=== PATIENT | female | born 1985 | race Caucasian/White ===

== ENCOUNTER 2019-04-26 20:43 | Emergency (ER) | payer MEDICAID, OTHER ==
--- NOTE | 2019-04-26 21:41 | ED Physician Documentation ---
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 : None HEENT: None Psych: None Musculoskeletal: Other Derm: None Other Past Medical History: sciatica pain - Past Surgical History Past Surgical History: No - Present Medications Home Medications: Ambulatory Orders Medication Instructions Recorded Confirmed Albuterol Sulfate [Proventil Hfa 1 - 2 puffs IH Q4H PRN #1 09/08/15 Inhaler] [email or web address] Amitriptyline [Elavil] 50 04/26/19 Hydrocodone/Acetaminophen 1 - 2 each PO Q6H PRN #14 tablet 04/26/19 [Hydrocodon-Acetaminophen 5-325] Ibuprofen 600 mg PO Q6HR PRN #20 tablet 04/26/19 - Allergies Allergies/Adverse Reactions: Allergies Allergy/AdvReac Type Severity Reaction Status Date / Time Penicillins Allergy Rash Verified 04/26/19 21:02 - Social History Does the pt smoke?: No Smoking Status: Never smoker Does the pt drink ETOH?: Yes Does the pt have substance abuse?: No - Immunizations Immunizations are current?: Yes - POLST Patient has POLST: No PD ED PE NORMAL - Vitals Vital signs reviewed: Yes - General General: Alert and oriented X 3, No acute distress, Well developed/nourished - Derm Derm: Normal color, Warm and dry - Extremities Extremities: No edema - Neuro Neuro: No motor deficit, No sensory deficit PD ED PE EXPANDED - Extremities Extremities: Tenderness (right elbow lateral epicondyle), Limited ROM (limited supination due to pain) Results - Vitals Vitals: Oxygen O2 Source Room air PD MEDICAL DECISION MAKING - ED course Complexity details: considered differential, d/w patient Departure - Departure Disposition: 01 Home, Self Care Clinical Impression: Tendonitis of elbow, right Condition: Good Instructions: ED Epicondylitis Lateral Elbow Follow-Up: Chiquita Higgins PA-C [Primary Care Provider] - Prescriptions: Ibuprofen 600 mg PO Q6HR PRN #20 tablet PRN Reason: Pain Hydrocodone/Acetaminophen [Hydrocodon-Acetaminophen 5-325] 1 - 2 each PO Q6H PRN #14 tablet PRN Reason: pain Forms: Activity restrictions Discharge Date/Time: 04/26/19 22:25
[2019-04-26] MEDS ORDERED: KETOROLAC 60 MG/2 ML VIAL IM STA (21:58)
[2019-04-26 22:14] VITALS: BP 123/68
== END 2019-04-26 22:25 | disposition home or self-care (01) ==
LOC: ED 20:43
DX: M77.8 Other enthesopathies, not elsewhere classified (principal)
CPT/HCPCS: 99283

== ENCOUNTER 2019-09-29 09:29 | Outpatient (CLI) | payer MEDICAID ==
[2019-09-29 09:53] LABS: BASOPHILS # (AUTO) 0.1 10^3/uL (0.0-0.1); BASOPHILS % (AUTO) 0.5 %; EOSINOPHILS # (AUTO) 0.8 10^3/uL (0.0-0.7); EOSINOPHILS % (AUTO) 6.8 %; HGB - HEMOGLOBIN 12.8 g/dL (12.0-16.0); LYMPHOCYTES # (AUTO) 3.2 10^3/uL (1.5-3.5); LYMPHOCYTES % (AUTO) 27.3 %; MEAN CORPUSCULAR HGB CONC 33.2 g/dL (32.0-36.0); MEAN CORPUSCULAR VOLUME 90.4 fL (81.0-99.0); MEAN PLATELET VOLUME 9.9 fL (7.9-10.8); MONOCYTES # (AUTO) 0.6 10^3/uL (0.0-1.0); MONOCYTES % (AUTO) 5.3 %; NEUTROPHILS % (AUTO) 59.7 %; PLT - PLATELET COUNT 369 10^3/uL (130-450); RED BLOOD COUNT 4.27 10^6/uL (4.20-5.40); RED CELL DISTRIBUTION WIDTH 12.1 % (12.0-15.0); WHITE BLOOD COUNT 11.7 x10^3/uL (4.8-10.8)
[2019-09-29 10:19] LABS: CREATININE 0.5 mg/dL (0.4-1.0)
== END 2019-09-29 09:30 | disposition home or self-care (01) ==
LOC: LAB 09:29
PROVIDERS: ATTEND Obstetrics & Gynecology
DX: Z01.812 Encounter for preprocedural laboratory examination (principal)
CPT/HCPCS: 36415; 80048; 85025; 86850; 86900; 86901

== ENCOUNTER 2019-09-30 07:08 | Day surgery (SDC) | payer MEDICAID ==
[~2019-09-30 07:08] MED LIST: ACETAMINOPHEN 1,000 MG/100 ML 100 ML IV ONE; CEFAZOLIN SODIUM IN 0.9 % NACL 2 GM/100 ML BAG IV ONE; CELECOXIB 100 MG CAPSULE PO ONE; GABAPENTIN 400 MG CAPSULE ONE; LACTATED RINGERS 1,000 ML IV ONE
--- NOTE | 2019-09-30 07:23 | ANESTHESIA ---
Pre-Anesthesia VS, & Labs - Diagnosis desires sterilization - Procedure Laparoscopic salpingectomy Vital Signs: Last Vital Signs Temp 36.8 C 09/30/19 07:24 Pulse 86 09/30/19 07:24 Resp 16 09/30/19 07:24 BP 100/69 09/30/19 07:24 Pulse Ox 100 09/30/19 07:24 Height 5 ft 1 in Body Mass Index 27.9 - NPO >8 hours - Is Patient ?: No - Lab Results Lab results reviewed: Yes Home Medications and Allergies Home Medications: Ambulatory Orders RX: Albuterol Sulfate [Proventil Hfa Inhaler] 1 - 2 puffs IH Q4H PRN 09/29/19 Amitriptyline [Elavil] 50 mg PO QPM PRN 04/26/19 Albuterol Sulfate [Proventil Hfa Inhaler] 1 - 2 puffs IH Q4H PRN 09/29/19 Allergies/Adverse Reactions: Allergies Allergy/AdvReac Type Severity Reaction Status Date / Time amoxicillin Allergy Rash Verified 09/29/19 11:55 Penicillins Allergy Rash Verified 04/26/19 21:02 Anes History & Medical History - Anesthetic History Anesthesia Complications: reports: No previous complications Family history of Anesthesia Complications: Denies Family history of Malignant Hyperthermia: Denies - Medical History Cardiovascular: reports: None Pulmonary: reports: Asthma Gastrointestinal: reports: None Urinary: reports: None Musculoskeletal: reports: Other Endocrine/Autoimmune: reports: None Blood Disorders: reports: None Skin: reports: None Smoking Status: Never smoker - Surgical History Other Past Surgical History: wisdom teeth extraction Exam General: Alert, Oriented x3, Cooperative Dental: WNL Mouth Openin Fingerbreadth Neck Mobility: Normal Mallampati classification: II Thyromental Distance: 4-6 cm Respiratory: Lungs clear, Normal breath sounds, No respiratory distress Cardiovascular: Regular rate Neurological: Normal speech Mental/Cognitive Status: Alert/Oriented X3, Normal for patient Cognitive Status: Within normal limits Plan Anesthesia Type: General Consent for Procedure(s) Verified and Reviewed: Yes Code Status: Attempt Resuscitation ASA classification: 1-Healthy patient Is this case an emergency?: No
[2019-09-30 08:00] LABS: HCG UR QUAL NEGATIVE
[2019-09-30] MEDS ORDERED: LIDOCAINE 1%-EPI 1:100000 20 ML MDV ONE (08:48)
[2019-09-30] MEDS ORDERED: ROCURONIUM 50 MG/5 ML VIAL IVP ONE (09:25)
[2019-09-30] MEDS ORDERED: ONDANSETRON 4 MG/2 ML VIAL IVP ONE (09:25)
[2019-09-30] MEDS ORDERED: GLYCOPYRROLATE 1 MG/5 ML VIAL IVP ONE (09:25)
[2019-09-30] MEDS ORDERED: fentaNYL 100 MCG/2 ML VIAL IVP ONE (09:25)
[2019-09-30] MEDS ORDERED: LIDOCAINE-MPF 2% 5 ML VIAL IM ONE (09:25)
[2019-09-30] MEDS ORDERED: MIDAZOLAM 2 MG/2 ML VIAL IVP ONE (09:25)
[2019-09-30] MEDS ORDERED: DEXAMETHASONE 4 MG/ML VIAL IVP ONE (09:25)
[2019-09-30] MEDS ORDERED: PROPOFOL 200 MG/20 ML VIAL IVP ONE (09:25)
[2019-09-30] MEDS ORDERED: KETOROLAC 30 MG/ML VIAL IVP ONE (09:25)
[2019-09-30] MEDS ORDERED: NEOSTIGMINE 1 MG/1 ML 10 ML MDV IVP ONE (09:25)
[2019-09-30] MEDS ORDERED: ACETAMINOPHEN 1,000 MG/100 ML 100 ML IV ONE (09:25)
[2019-09-30] MEDS ORDERED: PHENYLEPHRINE 10 MG/ML VIAL IV ONE (09:25)
[2019-09-30] MEDS ORDERED: LIDOCAINE 1%-EPI 1:100000 20 ML MDV SUBQ ONE (10:13)
[2019-09-30] MEDS ORDERED: oxyCODONE 5 MG TABLET PO PRN (11:03)
[2019-09-30] MEDS ORDERED: LORazepam 2 MG/ML VIAL IVP PRN (11:03)
[2019-09-30] MEDS ORDERED: HYDROcod/ACETAM 5/325 MG TABLET PO PRN (11:03)
[2019-09-30] MEDS ORDERED: ONDANSETRON 4 MG/2 ML VIAL IVP PRN (11:03)
--- NOTE | 2019-09-30 11:07 | OPERATIVE REPORT ---
Operative Report - General Procedure Date: 09/30/19 Planned Procedure: Laproscopic bilateral Salpingectomy Pre-Op Diagnosis: undesired fertility Procedure Performed: Laproscopic bilateral Salpingectomy Post Op Diagnosis: undesired fertility - Procedure Note Primary Surgeon: David Valencia MD Anesthesia Provider: Dylon ramos CRNA Anesthesia Technique: General ET tube Pathology: bilateral tubes
--- NOTE | 2019-09-30 11:25 | OPERATIVE REPORT ---
DATE OF SERVICE: 09/30/2019 Physician: David Valencia MD PREOPERATIVE DIAGNOSIS: Undesired fertility. POSTOPERATIVE DIAGNOSIS: Undesired fertility. PROCEDURE PERFORMED: Laparoscopic bilateral salpingectomy. SURGEON: David Valencia MD ANESTHESIA PROVIDER: Dylon Michelle CRNA. ANESTHETIC: General via endotracheal tube. ESTIMATED BLOOD LOSS: 15 mL FINDINGS: Upon performing the endotracheal intubation, there was a 2 mm lesion on the right vocal co rd. Upon inspecting the abdominal cavity, tubes and ovaries appeared to be free of disease. The gini endix also appeared to be normal. PROCEDURE IN DETAIL: Following adequate endotracheal anesthesia, patient placed in dorsal lithotomy position in [facility]. At this point, a pelvic examination under anesthesia was performed in ich the uterus was determined to be retroverted. She was then prepped and draped in the usual fashio n. At this point, a timeout was performed, which concerns were addressed. A speculum was placed in the vagina. The cervix was visualized, grasped with a single-tooth tenaculum and then dilated up to 8 mm in the retroverted position. A HUMI trocar was then placed without difficulty. Following this, the bean picker machine operator's gloves were changed and then a stab wound was made in the subumbilical region with a #15 blade following local anesthesia with 1% lidocaine with epinephrine. A 5 mm port was then placed under single pass and there was evidence of no injury at site of insertion. At this point, both lef t and right lower quadrant trocars were placed following local anesthesia as well as skin incision wi th a #15 blade. Both were placed under direct visualization. The pelvis was inspected with findings of normal pelvis. The left fallopian tube was grasped at its fimbriated end and then utilizing Liga Sure, the mesosalpinx was cauterized and transected all the way to the cornu. Evidence of good hemos tasis was observed. The right fallopian tube was treated in identical fashion, it was grasped at the fimbriated end. The mesosalpinx was cauterized and transected with the LigaSure all the way to the cornu. Both tubes were brought out of the abdominal cavity. There was some oozing noted from the me sosalpinx on the left-hand side. This was recauterized with the LigaSure. This was then irrigated f ree and there is no evidence of any further bleeding. The appendix was inspected and noted to be nor mal. Both trocars were then removed under direct visualization. The CO2 was allowed to escape and t he subumbilical trocar was then removed. The incision was closed utilizing Monocryl subcuticular wit h Dermabond to close these incisions. The HUMI was then removed from the vagina. Patient tolerated the procedure well and was taken to recovery in stable condition. Sponge and needle counts were sidra zuleta TD: 09/30/2019 11:17
[2019-09-30 11:58] VITALS: BP 110/66
== END 2019-09-30 07:09 | disposition home or self-care (01) ==
LOC: SDS 07:08
PROVIDERS: ATTEND Obstetrics & Gynecology
PROC: 0UT74ZZ Resection of Bilateral Fallopian Tubes, Percutaneous Endoscopic Approach (ICD-10-PCS; principal; 2019-09-30 08:30)
DX: Z30.2 Encounter for sterilization (principal); J45.20 Mild intermittent asthma, uncomplicated; M54.30 Sciatica, unspecified side; Z79.82 Long term (current) use of aspirin; Z79.51 Long term (current) use of inhaled steroids; Z87.891 Personal history of nicotine dependence
CPT/HCPCS: 58661; 81025; A9270; J0131; J0690; J7120

== ENCOUNTER 2019-12-31 19:17 | Outpatient (CLI) | payer MEDICAID | END 2019-12-31 19:18 | disposition critical access hospital (66) | LOC: EMS 19:17 | PROVIDERS: ATTEND Surgery | DX: R51 Headache (principal); R11.2 Nausea with vomiting, unspecified; R42 Dizziness and giddiness | CPT/HCPCS: A0425; A0427; A0999 ==

== ENCOUNTER 2019-12-31 19:40 | Emergency (ER) | payer MEDICAID ==
[2019-12-31] MEDS ORDERED: MORPHINE 2 MG/ML CARPUJECT IVP STA (19:51)
[2019-12-31] MEDS ORDERED: METOCLOPRAMIDE 10 MG/2 ML VIAL IVP STA (19:51)
--- NOTE | 2019-12-31 19:53 | ED Physician Documentation ---
PD HPI HEADACHE - Stated complaint Stated Complaint: PATRICIO/N/V - Chief complaint Chief Complaint: Neuro - History obtained from History obtained from: Patient (34-year-old woman with history of PTSD and migraine headaches. She developed a rapid but not sudden onset headache today at 5 PM with nausea. It is a frontal headache rating to back of her head. It is generally quicker in onset than her usual migraines and atypical otherwise. Onset was over about 20 minutes. There is no associated fevers chills, neck stiffness. 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 : None HEENT: None Psych: Depression Musculoskeletal: Other Derm: None - Past Surgical History Past Surgical History: No - Present Medications Home Medications: Ambulatory Orders Medication Instructions Recorded Confirmed Amitriptyline [Elavil] 50 mg PO QPM PRN 04/26/19 12/31/19 Albuterol Sulfate [Proventil Hfa 1 - 2 puffs IH Q4H PRN 09/29/19 12/31/19 Inhaler] Fluoxetine HCl [Prozac] 20 mg PO DAILY 12/31/19 12/31/19 Metformin HCl 500 mg PO BID #60 tablet 12/31/19 - Allergies Allergies/Adverse Reactions: Allergies Allergy/AdvReac Type Severity Reaction Status Date / Time amoxicillin Allergy Rash Verified 12/31/19 19:49 Penicillins Allergy Rash Verified 12/31/19 19:49 - Social History Does the pt smoke?: No Smoking Status: Never smoker Does the pt drink ETOH?: Yes Does the pt have substance abuse?: No - Immunizations Immunizations are current?: Yes - POLST Patient has POLST: No PD ED PE NORMAL - Vitals Vital signs reviewed: Yes - General General: Alert and oriented X 3, No acute distress - HEENT HEENT: PERRL, EOMI - Neck Neck: Supple, no meningeal sign, No bony TTP - Cardiac Cardiac: RRR, No murmur - Respiratory Respiratory: No respiratory distress, Clear bilaterally - Abdomen Abdomen: Non tender - Back Back: No CVA TTP, No spinal TTP - Derm Derm: Normal color, Warm and dry - Extremities Extremities: No edema, No calf tenderness / cord - Neuro Neuro: Alert and oriented X 3, Normal speech Results - Vitals Vitals: Vital Signs - 24 hr 12/31/19 12/31/19 12/31/19 19:40 19:53 20:48 Temperature 36.8 C Heart Rate 93 90 Respiratory 20 16 Rate Blood Pressure 80/61 L 120/86 H 95/73 O2 Saturation 100 97 Oxygen O2 Source Room air - Labs Labs: Laboratory Tests 12/31/19 12/31/19 12/31/19 20:00 20:00 20:00 WBC 18.7 H RBC 4.20 Hgb 12.4 Hct 37.5 MCV 89.3 MCH 29.5 MCHC 33.1 RDW 11.9 L Plt Count 383 MPV 9.9 Neut # (Auto) 13.7 H Lymph # (Auto) 3.2 [place] # (Auto) 1.1 H Eos # (Auto) 0.5 Baso # (Auto) 0.1 Absolute Nucleated RBC 0.00 Nucleated RBC % 0.0 Sodium 134 L Potassium 3.2 L Chloride 98 L Carbon Dioxide 20 L Anion Gap 16.0 H BUN 9 Creatinine 0.6 Estimated GFR (MDRD) 113 Glucose 229 H Glycated Hemoglobin 8.0 H Estim Average Glucose 183 H Calcium 8.7 Total Bilirubin 0.4 AST 28 ALT 32 Alkaline Phosphatase 81 Total Protein 7.8 Albumin 4.1 Globulin 3.7 Albumin/Globulin Ratio 1.1 Lipase 30 - Rads (name of study) CT Head Radiology: EMP read contemporaneously (NAD) PD MEDICAL DECISION MAKING - ED course ED course: 34-year-old woman with rapid but not sudden onset headache in the setting of history of migraines. Of note she was also noted to be hyperglycemic. With an A1c of 8.3. This was discussed with her. She was pretty much pain-free after meds here. No meningismus. Departure - Departure Disposition: 01 Home, Self Care Clinical Impression: Hyperglycemia Headache Qualifiers: Headache type: unspecified Headache chronicity pattern: acute headache Intractability: intractable Qualified Code(s): R51 - Headache Condition: Good Record reviewed to determine appropriate education?: Yes Instructions: ED Headache Tension Prescriptions: Metformin HCl 500 mg PO BID #60 tablet Comments: Tonight, your head CT is normal. Your labs do suggest borderline diabetes, your hemoglobin A1c was 8.0 suggesting that your average glucose over the last 6 weeks or so has been about 183. For that we are starting metformin. Focus on diet and exercise and follow-up with your primary care physician soon as possible. Return for new or worsening symptoms.
[2019-12-31 20:05] LABS: BASOPHILS # (AUTO) 0.1 10^3/uL (0.0-0.1); BASOPHILS % (AUTO) 0.5 %; EOSINOPHILS # (AUTO) 0.5 10^3/uL (0.0-0.7); EOSINOPHILS % (AUTO) 2.7 %; HGB - HEMOGLOBIN 12.4 g/dL (12.0-16.0); LYMPHOCYTES # (AUTO) 3.2 10^3/uL (1.5-3.5); LYMPHOCYTES % (AUTO) 17.3 %; MEAN CORPUSCULAR HEMOGLOBIN 29.5 pg (27.0-31.0); MEAN CORPUSCULAR HGB CONC 33.1 g/dL (32.0-36.0); MEAN CORPUSCULAR VOLUME 89.3 fL (81.0-99.0); MEAN PLATELET VOLUME 9.9 fL (7.9-10.8); MONOCYTES # (AUTO) 1.1 10^3/uL (0.0-1.0); MONOCYTES % (AUTO) 5.8 %; NEUTROPHILS # (AUTO) 13.7 10^3/uL (1.5-6.6); NEUTROPHILS % (AUTO) 72.9 %; PLT - PLATELET COUNT 383 10^3/uL (130-450); RED CELL DISTRIBUTION WIDTH 11.9 % (12.0-15.0); WHITE BLOOD COUNT 18.7 x10^3/uL (4.8-10.8)
[2019-12-31 20:19] LABS: ALBUMIN 4.1 g/dL (3.2-5.5); ALBUMIN/GLOBULIN RATIO 1.1 (1.0-2.2); BILIRUBIN,TOTAL 0.4 mg/dL (0.2-1.0); CALCIUM 8.7 mg/dL (8.5-10.3); CREATININE 0.6 mg/dL (0.4-1.0); TOTAL PROTEIN 7.8 g/dL (6.7-8.2)
[2019-12-31 20:25] LABS: HB2 TOTAL 13.2 g/dL; HEMOGLOBIN A1C 0.85 g/dL
--- NOTE | 2019-12-31 20:36 | CT Report ---
Reason: headache Procedure Date: 12/31/2019 Accession Number: [id number] / [id number] Procedure: CT - HEAD WO CPT Code: Final Report FULL RESULT: EXAM: CT HEAD EXAM DATE: 12/31/2019 08:26 PM. CLINICAL HISTORY: Headache. COMPARISON: None. TECHNIQUE: Multiaxial CT images were obtained from the foramen magnum to the vertex. Reformats: Sagittal and coronal. IV contrast: None. In accordance with CT protocol optimization, one or more of the following dose reduction techniques were utilized for this exam: automated exposure control, adjustment of mA and/or KV based on patient size, or use of iterative reconstructive technique. FINDINGS: Parenchyma: No intraparenchymal hemorrhage. No evidence of mass, midline shift, or CT findings of infarction. Mayes-white differentiation is distinct. Bilateral basal ganglia calcifications. Extraaxial Spaces: Normal for age. No subdural or epidural collections identified. Ventricles: Normal in size and position. Sinuses and Orbits: Imaged paranasal sinuses, orbits, and mastoids show no significant abnormality. Bones: No evidence of fracture or calvarial defect. Other: None. IMPRESSION: Normal head CT. RADIA
[2019-12-31 21:28] VITALS: BP 107/83
== END 2019-12-31 21:28 | disposition home or self-care (01) ==
LOC: EDUNIT# → ED 19:40
DX: R73.9 Hyperglycemia, unspecified (principal); R51 Headache
CPT/HCPCS: 36415; 70450; 80053; 83036; 83690; 85025; 96374; 96375; 99284; J2765